=== PATIENT | female | born 1945 | race Caucasian/White ===

== ENCOUNTER 2017-03-19 09:13 | Day surgery (SDC) | payer OTHER ==
[2017-03-19] MEDS ORDERED: diphenhydrAMINE 25 MG CAP PO ONE (09:19)
[2017-03-19] MEDS ORDERED: NS 1,000 ML IV ONE (09:19)
[2017-03-19] MEDS ORDERED: ceFAZolin 2 GM/SWFI 2 GM/20 ML SYR IVP ONE (09:19)
[2017-03-19] MEDS ORDERED: BACITRACIN IRRIGATION/NS 50,000 UNITS/1,000 ML BTL IRR ONE (09:19)
[2017-03-19] MEDS ORDERED: DIAZEPAM 5 MG TAB PO ONE (09:19)
--- NOTE | 2017-03-19 09:49 | CPEKG ---
Heart Rate: 54 RR Interval: 1111 P-R Interval: 176 QRSD Interval: 152 QT Interval: 484 QTC Interval: 459 P [place]: 35 QRS [place]: 55 T Wave [place]: -4 EKG Severity - ABNORMAL ECG - EKG Impression: ATRIAL-PACED COMPLEXES EKG Impression: RIGHT BUNDLE BRANCH BLOCK Electronically Signed By: Osorio Maria 21-Mar-2017 13:02:05
[2017-03-19 10:16] LABS: PLATELET COUNT 194 10^3/uL (150-400)
[2017-03-19 10:27] LABS: INR 1.02 (0.83-1.16); PROTIME(PATIENT) 13.6 SEC (12.0-15.0)
--- NOTE | 2017-03-19 10:58 | PDPROPOC ---
Sedation Plan of Care Sedation Plan of Care: vital signs stable, mental status noted, patient educated of risks, benefits, alternatives, patient can tolerate sedation ASA Classification: ASA 2 Planned drugs: fentanyl, midazolam Mallampati Score: Class 2 Mallampati Reference Image: Patient passed 3-3-2 rule?: Yes
--- NOTE | 2017-03-19 11:00 | PDGENHP ---
History & Physical Chief Complaint: pacer at end of life History of Present Illness: 71 yo hx. of CAD s/p LAD pci with PPM for sick sinus syndrome. Deveice at end of life. Recent abcess in skin near sternum. Pertinent Past, Social, Family History: Non-contributory. Relevant Physical Exam: WN female no distress. chest scar. pacer scar no edema. abdomen soft. cor rrr Cardiorespiratory Assessment: 1. Generator at end of life.
[2017-03-19] MEDS ORDERED: LIDOCAINE 1% 300 MG/30 ML SDV ONE (11:18)
[2017-03-19] MEDS ORDERED: LIDO/EPI 1% **for epidural** 30 ML SDV ONE (11:19)
[2017-03-19] MEDS ORDERED: BUPIVACAINE 0.5% 30 ML SDV ONE (11:19)
[2017-03-19] MEDS ORDERED: MIDAZOLAM 2 MG/2 ML VIAL ONE ×3 (11:19→12:33)
[2017-03-19] MEDS ORDERED: fentaNYL 100 MCG/2 ML INJ ONE ×2 (11:19→12:03)
--- NOTE | 2017-03-19 12:18 | PDCTREPORT ---
Cardiothoracic Procedure Rpt Cardiothoracic Procedure Report: Procedure: Pacemaker generator change. Indications: Pacemaker end of life in the setting of sick sinus syndrome. Complications: None Technical difficulties: None EBL: Less than 10 cc. After obtaining informed consent, the patient was brought to the cardiac catheterization lab in the fasting state. The left subclavian pacer site was sterilely prepped and draped. The old scar was anesthetized with 2% xylocaine. Using a 10 blade an incision was made through the scar tissue. Using a combination of sharp blunt dissection and the Bovie catheter pacemaker pocket was entered. The device was delivered to the field. Set screws were loosened. Each lead was individually tested. Appropriate thresholds and sensitivities were confirmed. Pocket was then copiously irrigated with bacitracin. The new device was delivered to the field. Leads were attached to the new device confirming serial numbers. The device was coiled in the pocket. Pocket was closed using a 3 layer procedure. 2 0, 3 0 Vicryl were used. Strata Fix suture was used to close the skin. Pressure dressing was applied the patient is taken to recovery for continued care. Explanted device is a [employer] XL serial [id number]. The new device is an [employer]urity MRI serial [id number] Chronic right atrial lead [id number]. Right ventricular chronic lead is a tendril SDX serial number [id number] Atrial capture was at 0.7 volts with a pulse with 0.5 milliseconds. Sensing was 3.8 mV. Impedance was 422 Ohms. Right ventricular capture was 1.3 volts with a pulse with a 0.5 milliseconds sensing was 7.3 mV with the impedance of 470 Ohms. Conclusions: Successful pacemaker generator change. Patient Problems: Problems Problem Status Onset CHF - Diastolic heart failure Active
--- NOTE | 2017-03-19 14:05 | CPEKG ---
Heart Rate: 61 RR Interval: 984 P-R Interval: 184 QRSD Interval: 152 QT Interval: 468 QTC Interval: 472 P [place]: 62 QRS [place]: 64 T Wave [place]: -16 EKG Severity - ABNORMAL ECG - EKG Impression: SINUS RHYTHM EKG Impression: RIGHT BUNDLE BRANCH BLOCK Electronically Signed By: Osorio Maria 21-Mar-2017 13:01:56
== END 2017-03-19 15:20 | disposition home or self-care (01) ==
LOC: FLAB 09:13 → FCATH 15:20
PROVIDERS: ATTEND Internal Medicine Interventional Cardiology
PROC: 02H63JZ Insertion of Pacemaker Lead into Right Atrium, Percutaneous Approach (ICD-10-PCS; principal; 2017-03-19)
PROC: 02HK3JZ Insertion of Pacemaker Lead into Right Ventricle, Percutaneous Approach (ICD-10-PCS; principal; 2017-03-19)
PROC: 0JPT0PZ Removal of Cardiac Rhythm Related Device from Trunk Subcutaneous Tissue and Fascia, Open Approach (ICD-10-PCS; principal; 2017-03-19)
PROC: 0JH60PZ Insertion of Cardiac Rhythm Related Device into Chest Subcutaneous Tissue and Fascia, Open Approach (ICD-10-PCS; principal; 2017-03-19)
DX: Z45.018 Encounter for adjustment and management of other part of cardiac pacemaker (principal); I49.5 Sick sinus syndrome
CPT/HCPCS: C1785; J0690; J2250; J3010